=== PATIENT | male | born 1960 | race Caucasian/White ===

== ENCOUNTER → 2016-10-30 | Outpatient (CLI) | payer OTHER ==
[~2016-10-30] MED LIST: ASPI-482 PO; CHOL5000 PO; GEMF600T3 PO; LISI-334 PO; OMEG100021 PO
--- NOTE | 2016-10-30 12:33 | RAD ---
Indication loss of bowel sacral sclerotic lesion. Whole body bone scan imaging was performed. Additional images targeted to the sacrum were obtained. 25 mCi of technetium labeled MDP was administered. Note is made of a CT examination of the chest abdomen and pelvis 10/08/2016 and the accompanying report. Note is additionally made of MRI examinations 10/05/2016 and 09/15/2016. The radiopharmaceutical is symmetrically distributed throughout the visualized bony skeleton. No abnormal areas of activity are seen and specifically no abnormal uptake is seen in the sacrum or pelvis. Normal activity is seen in the kidneys and urinary bladder. IMPRESSION: Normal bone scan
== END | disposition home or self-care (01) ==
LOC: NM 08:44
PROVIDERS: ATTEND Internal Medicine Hematology & Oncology
DX: R22.2 Localized swelling, mass and lump, trunk (principal); M53.3 Sacrococcygeal disorders, not elsewhere classified
CPT/HCPCS: 78306; 96374; A9503

== ENCOUNTER 2016-11-02 08:40 | Outpatient (CLI) | payer OTHER ==
[~2016-11-02] VITALS: Ht 190.5 cm; Wt 117.9 kg
[2016-11-02] VITALS (12 sets, daily range): BP systolic 113–148; BP diastolic 63–85
[2016-11-02 07:34] LABS: BASO % 1 % (0-3); EOS % 2 % (0-3); HEMATOCRIT 39.1 % (39.0-53.0); HEMOGLOBIN 13.2 g/dL (13.0-17.5); LYMPH # 1.4 x10^3/uL (1.0-4.8); LYMPH % 36 % (24-48); MEAN CORPUSCULAR HEMOGLOBIN 31 pg (25-35); MEAN CORPUSCULAR HGB CONC 34 g/dL (31-37); MEAN CORPUSCULAR VOLUME 91 fL (79-100); MONO % 16 % (0-9); NEUT % 45 % (31-73); PLATELET COUNT 157 x10^3/uL (140-400); RED CELL DISTRIBUTION WIDTH 14.5 % (11.5-14.5); WHITE BLOOD COUNT 3.8 x10^3/uL (4.0-11.0)
[2016-11-02 07:41] LABS: INR 1.1 (0.8-1.1); PROTHROMBIN TIME PATIENT 13.1 SEC (11.7-14.0)
[~2016-11-02 08:40] MED LIST changes: +FENTANYL PF 250 MCG/5 ML VIAL. ONE; +LIDOCAINE 1% / SOD BICARB 8.4% 20 ML VIAL. IJ ONE; +MIDAZOLAM HCL/PF 5 MG/5 ML VIAL ONE
[2016-11-02] MEDS ORDERED: FENTANYL PF 250 MCG/5 ML VIAL. IV ONE (09:00)
[2016-11-02] MEDS ORDERED: LIDOCAINE 1% / SOD BICARB 8.4% 20 ML VIAL. IJ ONE (09:00)
[2016-11-02] MEDS ORDERED: MIDAZOLAM HCL/PF 5 MG/5 ML VIAL IV ONE (09:00)
--- NOTE | 2016-11-02 09:28 | PDOC ---
MODERATE SEDATION ASSESSMENT RISKS/ALTERNATIVES Risks/Alternatives Risks and alternatives of this type of sedation and procedure discussed with: RISK/ALTERNATIVES: Patient H & P ON CHART H & P H & P on chart and reviewed for co-morbid conditions and appropriate labs. H&P ON CHART: Yes STATUS PREG STATUS ASSESSED: N/A MEDS/ALLERGIES REVIEWED Meds/Allergies Reviewed Medications and Allergies including time and route of recently administered narcotics and sedatives. MEDS/ALLERGIES REVIEWED: Yes ASA RATING ASA RATING: I AIRWAY ASSESSMENT Airway Assessment Airway patency, oral function limitations, presence of caps, crowns, dentures, partials, and ability to extend neck assessed. AIRWAY ASSESSMENT: Yes MALLAMPATI SCORE MALLAMPATI SCORE: II PRE-SEDATION ASSESSMENT PRE-SEDATION ASSESSMENT: Yes ETHAN LIRIANO MD Nov 02, 2016 09:28
--- NOTE | 2016-11-02 09:34 | PDOC1 ---
History and Physical Date of Procedure Date of Admission 11/02/[address] guided bone marrow aspirate/bx---posterior left ilium CT guided bx right sacral lytic lesion Indication Indication Lytic right sacral lesion---myeloma vs met from ? primary Past Medical History Past Medical History See Nursing Pre procedure PMH Past Surgical History Past Surgical History See Nursing Pre procedure PSH Current Medications Current Medications Current Medications Lidocaine/Sodium Bicarbonate (Buffered Lidocaine 1%) 20 ml STK-MED ONCE IJ ; Start 11/02/16 at 08:05; Stop 11/02/16 at 08:06; Status DC Midazolam HCl (Versed) 5 mg STK-MED ONCE .ROUTE ; Start 11/02/16 at 08:31; Stop 11/02/16 at 08:32; Status DC Fentanyl Citrate (Fentanyl 5ml Vial) 250 mcg STK-MED ONCE .ROUTE ; Start at 08:32; Stop 11/02/16 at 08:33; Status DC Lidocaine/Sodium Bicarbonate (Buffered Lidocaine 1%) 20 ml 1X ONCE IJ Last administered on 11/02/16 09:07; Start 11/02/16 at 09:00; Stop 11/02/16 at 09:01; Status DC Midazolam HCl (Versed) 4 mg 1X ONCE IV Last administered on 11/02/16 09:06; Start 11/02/16 at 09:00; Stop 11/02/16 at 09:01; Status DC Fentanyl Citrate (Fentanyl 5ml Vial) 200 mcg 1X ONCE IV Last administered on 09:06; Start 11/02/16 at 09:00; Stop 11/02/16 at 09:01; Status DC Active Scripts Active Reported Vitamin D3 (Cholecalciferol (Vitamin D3)) 5,000 Unit Capsule 5,000 Unit PO DAILY Fish Oil 1,000 mg Softgel (Ney-3/Dha/Epa/Fish Oil) 1,000 Mg Capsule 1,000 Mg PO BID Aspir 81 (Aspirin) 81 Mg Tablet.dr 81 Mg PO Gemfibrozil 600 Mg Tablet 600 Mg PO BID Lisinopril 20 Mg Tablet 20 Mg PO DAILY Allergies Allergies: Coded Allergies: No Known Drug Allergies (Unverified , 10/05/16) Physical Exam Vital Signs Vital Signs Date Time Temp Pulse Resp B/P Pulse Ox O2 Delivery O2 Flow Rate FiO2 11/02/16 09:20 71 19 96 Room Air 1/9/17 09:07 2.0 11/02/16 07:45 98.6 113/63 98.6 Lungs: Clear to auscultation Heart: Regular rate Psych/Mental Status: Mental status NL Diagnostic Data/Imaging Images PMC MRI pelvis from 10/05/[address] CAP from 10/08 reviewed PMC bone scan from 10/30/16 reviewed Assessment Assessment Lytic right sacral lesion---negative bone scan---myeloma vs met from unknown primary. Problems: Plan Plan CT guided bone marrow asp/bx---posterior left ilium CT guided bx right sacral mass ETHAN LIRIANO MD Nov 02, 2016 09:34
--- NOTE | 2016-11-02 09:38 | PDOC ---
Exam Court Officer Court Officer Adina Pre-Procedure Diagnosis Pre-Procedure Diagnosis Lytic right sacral lesion---myeloma vs met disease of ? primary Post-Procedure Diagnosis Post-Procedure Diagnosis Same Procedure Performed Procedure Performed CT guided bone marrow asp/bx---left posterior ilium CT guided bx lytic right sacral lesion Type of Anesthesia Type of Anesthesia Local + Mod sedation Estimated Blood Loss EBL: Minimal Specimens Specimans 6 cc bone marrow asp + 1 14G bone marrow core bx-------to heme-path. 1 14G core from lytic right sacral lesion to path in formalin Condition of Patient Condition of Patient Stable. No apparent complication. Disposition Disposition Home from [facility] post recovery, if no problems. F/u with Dr Chakraborty. Full report to follow. ETHAN LIRIANO MD Nov 02, 2016 09:38
--- NOTE | 2016-11-02 16:04 | RAD ---
CT-guided power drill assisted bone marrow aspiration and biopsy CT-guided power drill assisted core biopsy of lytic right sacral lesion Indication: 56-year-old male with right sacral lytic lesion demonstrated at CT and MRI. 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 CT-guided biopsy of the lytic sacral mass has been requested. CT-guided bone marrow aspirate/biopsy has also been requested for staging purposes. Anesthesia: 31 minutes moderate sedation was provided utilizing a total of 4 mg percent and 200 mcg fentanyl, IV. The patient was appropriately monitored by a qualified independent observer throughout the time of moderate sedation. Procedure: Informed consent for right sacral biopsy and left iliac bone marrow aspirate/biopsy was obtained from the patient. He was placed prone on the CT scanner. Conscious sedation was provided with IV Versed and fentanyl. Bone marrow aspirate/biopsy: A left posterior skin site suitable for CT-guided bone marrow aspirate/biopsy from posterior aspect of left iliac bone was selected and marked. That area was prepped and draped in the usual sterile fashion. Using aseptic technique, local anesthesia, and CT guidance, and the [employer] power front loader residential driver, successful percutaneous entry was achieved through posterior cortex of left iliac bone. Approximately 6 cc of bone marrow was promptly aspirated, and was submitted to hematology personnel in the CT suite. Using CT guidance, the [employer] power front loader residential driver was then utilized to obtain a single, 11-gauge core biopsy sample from marrow cavity of left iliac bone. The biopsy sample was submitted to pathology in formalin. A sterile dressing was applied over the biopsy skin puncture site. Patient tolerated the procedure well without apparent complication. Right sacral lytic lesion biopsy: A right posterior skin site suitable for CT-guided core biopsy of the patient's right sacral lytic lesion was selected and marked. That area was prepped and draped in the usual sterile fashion. Using aseptic technique, local anesthesia, direct CT guidance, and the [employer] power front loader residential driver system, successful percutaneous entry was achieved into posterior aspect of the right sacral lytic lesion. A single 11-gauge power drill assisted core biopsy sample was then obtained from the right sacral lytic lesion. The biopsy sample was submitted in formalin to pathology. A sterile dressing was applied over the biopsy puncture site. Patient tolerated the procedure well without apparent complication. Impression: 1. Successful, uneventful CT-guided bone marrow aspirate and biopsy, utilizing the [employer] power front loader residential driver biopsy system, as described. 2. Successful, uneventful CT-guided biopsy of right sacral lytic lesion, utilizing the [employer] biopsy system, as described. PQRS compliance statement: One or more of the following individualized dose reduction techniques were utilized for this CT procedure: 1. Automated exposure control. 2. Adjustment of MA and/or KV according to patient size. 3. Iterative reconstruction technique.
--- NOTE | 2016-11-04 14:08 | PATHOLOGY ---
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 COMMENT: Sections of the right sacral mass core biopsy reveal segments of bone. Approximately one-half of one of the segments of bone is hypercellular and shows sheet-like replacement of marrow by a monomorphic population of immature plasma cells. The plasma cells have eosinophilic cytoplasm and possess eccentric, enlarged, rounded to ovoid nuclei containing a prominent nucleolus. The remaining marrow of this segment shows hematopoietic marrow with trilineage hematopoiesis. The other segment of bone shows focal hematopoietic marrow with a small focus of replacement by monomorphic plasma cells. An immunoperoxidase stain for plasma cell antigen and in situ hybridization for kappa and lambda light chain are obtained and yield the following results: Plasma cell antigen: plasma cells positive; Margaret LINDA: plasma cells focally positive and show kappa light chain restriction; Lambda LINDA: rare plasma cells positive. 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 The case is also examined by Dr. Renae Black, who concurs with the diagnosis. (JPM:mgjulia:csd; d/t: 11/03-09/10) Special stains performed: plasma cell antigen, kappa LINDA, and lambda LINDA REPORT ELECTRONICALLY SIGNED BY: Kevin Denton M.D. DATE/TIME: 11/04/2016 14:08 * * * * * * * * GROSS PATHOLOGY: The specimen is received in formalin labeled "Abad Wiley, sacral mass". Received are two needle cores of light nichols bone measuring 0.4 and 1.0 cm in length, with each measuring 0.3 cm in diameter. The specimen is submitted entirely in cassette A1, following decalcification. (CAA; 11/02/2016) INITIAL CPT CODE(S): A; 17175, 55171, 42759, 22223 Professional services performed by [facility] at [facility] [address] [place] [address] Technical services performed by [email or web address] at [address] [place] [address], [address], [place] [address]. [facility], [address] [place] [address] phone: [phone] fax: [phone] SPECIMEN(S) RECEIVED: A.Right sacral mass CLINICAL HISTORY: Lytic sacral mass, myeloma vs. met, negative bone scan PATIENT: ABAD WILEY /AGE: 301/21/1960 (Age: 56) PATIENT #: [id number] ALT CASE #: SPECIMEN COLLECTION DATE: 11/02/2016 SPECIMEN RECEIVED DATE: 11/02/2016 [facility] - [id number] [place] [address] - PHONE: [phone] * * * END OF REPORT * * *
== END 2016-11-02 10:25 | disposition home or self-care (01) ==
LOC: INTRAD 08:40
PROVIDERS: ATTEND Internal Medicine Hematology & Oncology
DX: C90.30 Solitary plasmacytoma not having achieved remission (principal); E78.00 Pure hypercholesterolemia, unspecified; I10 Essential (primary) hypertension; Z90.49 Acquired absence of other specified parts of digestive tract
CPT/HCPCS: 20225; 36415; 38221; 77012; 85027; 85610; 88184; 88185; 88237; G0364; J2250; J3010; 88307; 88342; 88364; 88365; G0641